=== PATIENT | male | born 1960 | race Caucasian/White ===

== ENCOUNTER 2024-10-19 14:31 | Emergency (ER) | payer OTHER ==
[~2024-10-19] VITALS: Ht 180.3 cm; Wt 77.2 kg
[2024-10-19 14:39] VITALS: BP 116/71; RESP 86; O2SAT 18
[2024-10-19 14:42] VITALS: PULSE 79
--- NOTE | 2024-10-19 15:17 | ED.PDOC ---
History of Present Illness HPI Comments This is a 63 year old male presenting to the ED with chief complaint of defibrillator concern. Patient reports that he has a defibrillator in place and it has been beeping every 2 hours all day today. Patient relays that he had it installed in [facility] but does not wish to go back there to have it managed. Patient denies any chest pain, SOB, dizziness, N/V, or headache. Vital signs were stable. Chief Complaint: Medical Clearance Time Seen by MD: 15:15 Reviewed Notes: Medications, Allergies Allergies: Coded Allergies: NO KNOWN ALLERGIES (Unverified , 10/19/24) Information Source: Patient Mode of Arrival: Ambulatory Severity: Mild Timing: Hours Duration: Since onset Prehospital treatment: None Past Medical History PAST MEDICAL HISTORY: Denies Past Medical History (Other): History of sick sinus syndrome Surgical History (Other): Defibrillator Family History Family History: Reviewed,noncontributory to illness Social History Smoker: Non-Smoker Alcohol: Denies ETOH Use Drugs: Denies Drug Use Lives In: Home Constitutional: denies: chills, diaphoresis, fatigue, fever, malaise, sweats, weakness, others EENTM: denies: blurred vision, double vision, ear bleeding, ear discharge, ear drainage, ear pain, ear ringing, eye pain, eye redness, hearing loss, mouth pain, mouth swelling, nasal discharge, nose bleeding, nose congestion, nose pain, photophobia, tearing, throat pain, throat swelling, voice changes, others Respiratory: denies: cough, hemoptysis, orthopnea, SOB at rest, shortness of breath, SOB with excertion, stridor, wheezing, others Cardiovascular: reports: others (Patient complains of malfunctioning defibrillator); denies: chest pain, dizzy spells, diaphoresis, Dyspnea on exertion, edema, irregular heart beat, left arm pain, lightheadedness, palpitations, PND, syncope Gastrointestinal: denies: abdomen distended, abdominal pain, blood streaked bowels, constipated, diarrhea, dysphagia, difficulty swallowing, hematemesis, melena, nausea, poor appetite, poor fluid intake, rectal bleeding, rectal pain, vomiting, others Genitourinary: denies: burning, dysuria, flank pain, frequency, hematuria, incontinence, penile discharge, penile sore, pain, testicle pain, testicle swelling, urgency, others Neurological: denies: dizziness, fainting, headache, left sided numbness, left sided weakness, numbness, paresthesia, pre-existing deficit, right sided num bness, right sided weakness, seizure, speech problems, tingling, tremors, weakness, others Musculoskeletal: denies: back pain, gout, joint pain, joint swelling, muscle pain, muscle stiffness, neck pain, others Integumetry: denies: bruises, change in color, change in hair/nails, dryness, laceration, lesions, lumps, rash, wounds, others Allergic/Immunocompromised: denies: Difficulty Healing, Frequent Infections, Hives, Itching, others Hematologic/Lymphatic: denies: anemia, blood clots, easy bleeding, easy bruising, swollen glands, others Endocrine: denies: excessive hunger, excessive sweating, excessive thirst, excessive urination, flushing, intolerance to cold, intolerance to heat, unexplained weight gain, unexplained weight loss, others Psychiatric: denies: anxiety, bipolar disorder, depression, hopeless, panic disorder, schizophrenia, sleepless, suicidal, others All Other Systems: Reviewed and Negative Physical Exam General Appearance: No Apparent Distress, Normal HEENT: Normal ENT Inspection, Pharynx Normal, TMs Normal Neck: Full Range of Motion, Non-Tender, Normal, Normal Inspection Respiratory: Chest Non-Tender, Lungs Clear, No Accessory Muscle Use, No Respiratory Distress, Normal Breath Sounds Cardiovascular: No Edema, No JVD, No Murmur, No Gallop, Normal Peripheral Pulses, Regular Rate/Rhythm, Other (Patient complains of malfunctioning defibrillator) Breast Exam: Deferred Gastrointestinal: No Organomegaly, Non Tender, No Pulsatile Mass, Normal Bowel Sounds, Soft Genitalia: Deferred Pelvic: Deferred Rectal: Deferred Extremities: No calf tenderness, Normal capillary refill, Normal inspection, Normal range of motion, Non-tender, No pedal edema Neurologic: Alert, No Motor Deficits, Normal Affect, Normal Mood, No Sensory Deficits Cerebellar Function: NOT DONE Reflexes: NOT DONE Skin: Dry, Normal Color, Warm Lymphatic: No Adenopathy Was a procedure done? Was a procedure done?: No Differential Dx Considerations may include: Malfunctioning defibrillator, chest pain X-Ray, Labs, Meds, VS Vital Signs Date Time Temp Pulse Resp B/P (MAP) Pulse Ox O2 Delivery O2 Flow Rate FiO2 10/19/24 14:42 79 10/19/24 14:39 98 86 116/71 18 X-Ray, Labs, Meds, VS Comment Patient was angry that is he may have to returned to [facility] for evaluation. I advised the patient that I would speak to our cardiology department and have them come down to discuss his concerns with him, but that he was going to have to go back to [facility] for management of a pacemaker that was installed at their facility. Patient was not in any acute cardiac event that required intervention and therefore, patient did not require a cardiac workup. I got a hold of our cardio provider María and she and I went to the lobby to discuss concerns with the patient, but nursing informed me the patient had eloped from the facility. Time of 1ST Reevaluation: 15:31 Reevaluation 1ST: Unchanged Consultation: Cardiology Patient Education/Counseling: Diagnosis, Treatment Family Education/Counseling: Diagnosis, Treatment, No Family Present SEPSIS Sepsis Screen Date sepsis recognized/suspect: Oct 19, 2024 Time Sepsis recognized/suspect: 9 Recent Procedure: No On Antibiotic Therapy: No Respiratory Rate >20: No Heart Rate >90: No Temp<36 C (96.8 F) or >38.3 C: No SBP <90 or MAP <65 mmHG: No New Acute Mental Status Change: No Is the patient on CPAP, BIPAP,: No Physician Orders Electrocardigram (10/19/24 14:50) Vital Signs Date Time Temp Pulse Resp B/P (MAP) Pulse Ox O2 Delivery O2 Flow Rate FiO2 10/19/24 14:42 79 10/19/24 14:39 98 86 116/71 18 Departure 1 Departure Time of Disposition: 15:31 Impression: Primary Impression: Pacemaker complications Disposition: 07 LEFT AWOL/ELOPED Condition: Fair Discharged With: Self Critical Care Note Critical Care Time?: No Stability Stability form required: No Heart Score Heart Score: Heart Score Response (Comments) Value History N/A 0 EKG N/A 0 Age N/A 0 Risk Factors N/A 0 Troponin N/A 0 Total 0 I personally scribed for NICKY SALAZAR PAC ([email or web address]) on 10/19/24 at 15:17. Electronically submitted by Norberto Holland ([email or web address]). NICKY SALAZAR PAC Oct 19, 2024 15:17
--- NOTE | 2024-10-20 04:05 | ECG ---
[facility] Test Date: 2024-10-19 Test Time: 14:42:02 Pat Name: RYLAN MORGAN Department: Room: Gender: M Residential Monitor: ED : 1960 Requested By: EMERGENCY EMERGENCY Order Number: [id number] Reading MD: Tommie Curiel Measurements Intervals [place] Rate: 79 P: 37 ME: 342 QRS: 50 QRSD: 113 T: 16 QT: 387 QTc: 444 Interpretive Statements Sinus rhythm Multiform ventricular premature complexes Prolonged ME interval Probable left atrial enlargement Anterior infarct, old Electronically Signed On 10-22-2024 22:50:40 PDT by Tommie Curiel Please click the below link to view image of tracing.
== END 2024-10-19 15:32 | disposition left against medical advice (07) ==
LOC: ER 14:31
DX: T82.897A Other specified complication of cardiac prosthetic devices, implants and grafts, initial encounter (principal); Y92.89 Other specified places as the place of occurrence of the external cause
CPT/HCPCS: 93005